=== PATIENT | female | born 1965 | race Caucasian/White ===

== ENCOUNTER → 2018-02-14 | Outpatient (CLI) | payer MEDICARE, MEDICAID ==
[~2018-02-14] MED LIST: CEFA2PLA9 IV; ENOX40SY4 SQ
== END | disposition home or self-care (01) ==
LOC: RAD 10:19
PROVIDERS: ATTEND Orthopaedic Surgery
DX: M79.661 Pain in right lower leg (principal); M79.662 Pain in left lower leg; R60.9 Edema, unspecified
CPT/HCPCS: 93970

== ENCOUNTER 2018-09-16 15:37 | Inpatient (IN) | payer MEDICAID, MEDICARE ==
[~2018-09-16] VITALS: Ht 167.6 cm; Wt 95.0 kg
--- NOTE | 2018-09-16 15:56 | NUR ---
PT BIBA FOR C/O COUGH AND FEVERS X 2 DAYS, SOB STARTING TODAY. REPORT RECEIVED FROM EMS. PT STATES SOB WORSE WHEN LYING FLAT. ALSO NOTES GREEN VAG DISCHARGE X 1 MONTH, STATES "I NEED TO BE SEEN FOR AN STD" PT ATTACHED TO ALL MONITORS, EKG TAKEN ON ARRIVAL BY EDT. PER EMS, SPO2 90% ON ROOM AIR NEON SIGN INSTALLER, PT ARRIVED WEARING OXYGEN AT 4L/MIN. PT A&O, RESPS EVEN AND UNLABORED. NEURO INTACT. AWAITING MD AND ORDERS.
[2018-09-16] MEDS ORDERED: SODIUM CHLORIDE FLUSH 10ML SYR IVF ONE ×2 (16:00→17:00)
[2018-09-16 16:15] LABS: BASOPHILS # (AUTO) 0.02 x10^3/uL (0-0.1); BASOPHILS % (AUTO) 0 % (0-1); EOSINOPHILS # (AUTO) 0.03 x10^3/uL (0-0.4); EOSINOPHILS % (AUTO) 0 % (1-7); LYMPHOCYTES # (AUTO) 1.07 x10^3/uL (1-3.4); LYMPHOCYTES % (AUTO) 17 % (22-44); MD NO; MEAN CORPUSCULAR HEMOGLOBIN 32.2 pg (27.0-34.8); MEAN CORPUSCULAR HGB CONC 34.5 g/dL (32.4-35.8); MEAN CORPUSCULAR VOLUME 93.4 fL (80-100); MEAN PLATELET VOLUME 7.8 fL (7.4-10.4); MONOCYTES # (AUTO) 0.55 x10^3/uL (0.2-0.8); MONOCYTES % (AUTO) 9 % (2-9); NEUTROPHILS # (AUTO) 4.84 x10^3/uL (1.8-6.8); NEUTROPHILS % (AUTO) 74 % (42-75); PLATELET COUNT 105 x10^3/uL (130-400)
[2018-09-16 16:23] LABS: INTERNATIONAL NORMALIZED RATIO 1.19 (0.93-1.1); PROTHROMBIN TIME 12.4 Seconds (9.6-11.5)
[2018-09-16 16:26] LABS: ALANINE AMINOTRANSFERASE 22 U/L (12-78); ALBUMIN 2.9 g/dL (3.4-5.0); ANION GAP 9 mmol/L (5-15); CALCIUM 7.5 mg/dL (8.5-10.1); CHLORIDE 111 mmol/L (98-107); CREATININE 0.75 mg/dL (0.55-1.02)
[2018-09-16 16:30] LABS: ALKALINE PHOSPHATASE 106 U/L (45-117); BILIRUBIN,TOTAL 2.5 mg/dL (0.2-1.0); TOTAL PROTEIN 6.8 g/dL (6.4-8.2); TROPONIN I < 0.015 ng/mL (0.000-0.045)
[2018-09-16] MEDS ORDERED: VANCOMYCIN PER PHARMACY IV ONE (16:30)
[2018-09-16] MEDS ORDERED: ALBUTEROL SULFATE 2.5 MG/3 ML ONE (16:37)
[2018-09-16] MEDS ORDERED: PIPERACILLIN/TAZO/PMX 3.375GM 50 ML ONE (16:59)
[2018-09-16] MEDS ORDERED: PIPERACILLIN/TAZO/PMX 3.375GM 50 ML IVPB ONE (17:00)
--- NOTE | 2018-09-16 17:21 | NUR ---
PT MEDICATED PER EMAR, TOLERATING WELL. PT IS A&O, RESPS EVEN AND UNLABORED, DOZING INTERMITTENTLY BUT AWAKENS SPONTANEOUSLY. SINUS TACH ON SENIOR ENVIRONMENTAL ENGINEER, NO ECTOPY NOTED.
--- NOTE | 2018-09-16 17:44 | NUR ---
REPORT GIVEN TO RECEIVING AUGIE SONG PT AWAITING TRANSPORT TO ROOM 403-2 Addendum: 09/16/18 at 1745 by BARBARA REPORT GIVEN TO RECEIVING AUGIE SONG PT AWAITING TRANSPORT TO ROOM 402-1
--- NOTE | 2018-09-16 17:47 | NUR ---
PT SLEEPING, RESPS EVEN AND UNLABORED. SINUS TACH RATE 110'S WITH NO ECTOPY ON WOODWORKING SHOP LABORER.
--- NOTE | 2018-09-16 17:47 | NUR ---
HOSPITALIST AT BEDSIDE.
[2018-09-16] MEDS ORDERED: VANCOMYCIN 1,400 MG in SODIUM CHLORIDE 0.9% 250 ML IV ONE (18:00)
[2018-09-16] MEDS ORDERED: SODIUM CHLORIDE 0.9% 1,000ML IVBOLUS ONE (18:00)
[2018-09-16] MEDS ORDERED: SODIUM CHLORIDE 0.9% 1,000 ML IV SCH (18:07)
[2018-09-16] MEDS ORDERED: VANCOMYCIN PER PHARMACY MC PRN (18:30)
[2018-09-16] MEDS ORDERED: MAGNESIUM SULFATE 3 GM in SODIUM CHLORIDE 0.9% 100 ML IV ONE (18:30)
[2018-09-16] MEDS ORDERED: DOCUSATE 100 MG CAPSULE PO PRN (18:30)
[2018-09-16] MEDS ORDERED: POLYETHYLENE GLYCOL 17 GM PACKET PO PRN (18:30)
[2018-09-16 18:52] VITALS: BP 149/97
[2018-09-16] MEDS: ALBUTEROL/IPRATROPIUM 2.5MG/0.5MG, 3 ML NPPB SCH ×2 (19:00→22:36)
[2018-09-16] MEDS ORDERED: PHARMACOKINETIC MONITORING MC PRN (19:00)
[2018-09-16] MEDS ORDERED: VANCOMYCIN 1,400 MG in SODIUM CHLORIDE 0.9% 250 ML IV SCH (19:00)
[2018-09-16] MEDS ORDERED: PHARMACOKINETIC CONSULTATION MC ONE (19:00)
[2018-09-16] MEDS: NS IV SCH (20:24)
[2018-09-16] MEDS: KCL IV SCH (20:24)
[2018-09-16 20:30] VITALS: BP 150/110
[2018-09-16 20:31] VITALS: BP 159/108
[2018-09-16] MEDS: CEFTRIAXONE PMX 2GM/50ML 50 ML IV SCH (20:31)
[2018-09-16 20:32] VITALS: BP 156/108
[2018-09-16] MEDS: AZITHROMYCIN 500 MG in SODIUM CHLORIDE 0.9% 250 ML IV SCH (21:04)
[2018-09-16 21:09] LABS: RAPID INFLUENZA A Negative (Negative); RAPID INFLUENZA B Negative (Negative)
[2018-09-16] MEDS ORDERED: KETOROLAC 30 MG/1 ML IVPush SCH (22:00)
[2018-09-16] MEDS ORDERED: ONDANSETRON ODT 4 MG PO PRN (22:00)
[2018-09-16] MEDS: GUAIFENESIN/COD200MG-20MG/10ML LIQUID PO PRN (22:14)
[2018-09-16] MEDS: NICOTINE 14MG/24 HR PATCH.TD24 TD SCH (23:02)
[2018-09-16] MEDS: HEPARIN 5,000 UNITS/ML, 1ML SQ SCH (23:02)
[2018-09-16 23:14] VITALS: BP 161/105
[2018-09-16] MEDS: hydrALAzine 20 MG/ML, 1ML IV PRN (23:25)
[2018-09-17 01:45] VITALS: BP 144/85
[2018-09-17] MEDS: ALBUTEROL/IPRATROPIUM 2.5MG/0.5MG, 3 ML NPPB SCH ×6 (02:13→23:00)
[2018-09-17 05:45] LABS: MEAN CORPUSCULAR HEMOGLOBIN 32.7 pg (27.0-34.8); MEAN CORPUSCULAR HGB CONC 34.8 g/dL (32.4-35.8); MEAN CORPUSCULAR VOLUME 93.9 fL (80-100); RED BLOOD COUNT 4.13 x10^6/uL (3.82-5.3)
[2018-09-17 05:49] LABS: ALBUMIN 2.8 g/dL (3.4-5.0); ANION GAP 7 mmol/L (5-15); CALCIUM 7.5 mg/dL (8.5-10.1); CHLORIDE 112 mmol/L (98-107)
[2018-09-17 06:02] LABS: ALANINE AMINOTRANSFERASE 19 U/L (12-78); ALKALINE PHOSPHATASE 113 U/L (45-117); BILIRUBIN,TOTAL 2.5 mg/dL (0.2-1.0); CREATININE 0.51 mg/dL (0.55-1.02); TOTAL PROTEIN 6.8 g/dL (6.4-8.2)
[2018-09-17 06:20] LABS: BASOPHILS # (AUTO) 0.02 x10^3/uL (0-0.1); BASOPHILS % (AUTO) 0 % (0-1); EOSINOPHILS # (AUTO) 0.01 x10^3/uL (0-0.4); EOSINOPHILS % (AUTO) 0 % (1-7); LYMPHOCYTES # (AUTO) 0.96 x10^3/uL (1-3.4); LYMPHOCYTES % (AUTO) 16 % (22-44); MD SCAN; MEAN PLATELET VOLUME 8.5 fL (7.4-10.4); MONOCYTES # (AUTO) 0.38 x10^3/uL (0.2-0.8); MONOCYTES % (AUTO) 6 % (2-9); NEUTROPHILS # (AUTO) 4.78 x10^3/uL (1.8-6.8); NEUTROPHILS % (AUTO) 78 % (42-75); PLATELET COUNT 93 x10^3/uL (130-400)
[2018-09-17 07:23] VITALS: BP 167/115
[2018-09-17] MEDS: HEPARIN 5,000 UNITS/ML, 1ML SQ SCH ×2 (08:19→16:52)
[2018-09-17] MEDS: KETOROLAC 30 MG/1 ML IVPush PRN ×2 (08:48→17:02)
[2018-09-17] MEDS: ACETAMINOPHEN 325 MG TABLET PO PRN (08:48)
[2018-09-17 09:25] VITALS: BP 161/103
[2018-09-17] MEDS: hydrALAzine 20 MG/ML, 1ML IV PRN (09:29)
[2018-09-17] MEDS ORDERED: POTASSIUM CHLORIDE 20 MEQ TAB.ER.PRT PO ONE (09:30)
[2018-09-17] MEDS: methylPREDNISolone SOD SUCC 40 MG/ML IV SCH ×2 (10:35→16:52)
[2018-09-17 12:18] VITALS: BP_SYST 129; BP_SYST 150; BP_DIAS 69; BP_DIAS 93
[2018-09-17] MEDS: KCL IV SCH ×2 (12:38→22:22)
[2018-09-17] MEDS: NS IV SCH ×2 (12:38→22:22)
[2018-09-17 16:55] VITALS: BP 145/97
[2018-09-17] MEDS: CEFTRIAXONE PMX 2GM/50ML 50 ML IV SCH (20:00)
[2018-09-17 20:04] VITALS: BP 138/88
[2018-09-17] MEDS: AZITHROMYCIN 500 MG in SODIUM CHLORIDE 0.9% 250 ML IV SCH (21:03)
[2018-09-17] MEDS: NICOTINE 14MG/24 HR PATCH.TD24 TD SCH (21:10)
[2018-09-18] MEDS: methylPREDNISolone SOD SUCC 40 MG/ML IV SCH ×3 (00:39→18:00)
[2018-09-18] MEDS: HEPARIN 5,000 UNITS/ML, 1ML SQ SCH ×3 (00:51→18:00)
[2018-09-18] MEDS: GUAIFENESIN/COD200MG-20MG/10ML LIQUID PO PRN ×3 (01:00→18:00)
[2018-09-18] MEDS: KETOROLAC 30 MG/1 ML IVPush PRN ×2 (01:01→19:36)
[2018-09-18 01:05] VITALS: BP 152/92
[2018-09-18] MEDS: ALBUTEROL/IPRATROPIUM 2.5MG/0.5MG, 3 ML NPPB SCH ×5 (03:00→19:26)
[2018-09-18 05:04] LABS: MEAN CORPUSCULAR HEMOGLOBIN 32.6 pg (27.0-34.8); MEAN CORPUSCULAR HGB CONC 34.3 g/dL (32.4-35.8); MEAN CORPUSCULAR VOLUME 94.8 fL (80-100); MEAN PLATELET VOLUME 8.9 fL (7.4-10.4); PLATELET COUNT 95 x10^3/uL (130-400); RED BLOOD COUNT 3.92 x10^6/uL (3.82-5.3); RED CELL DISTRIBUTION WIDTH 15.2 % (9.6-15.2)
[2018-09-18 05:19] LABS: ALANINE AMINOTRANSFERASE 18 U/L (12-78); ALBUMIN 2.5 g/dL (3.4-5.0); ANION GAP 9 mmol/L (5-15); CALCIUM 8.1 mg/dL (8.5-10.1); CHLORIDE 118 mmol/L (98-107); CREATININE 0.68 mg/dL (0.55-1.02)
[2018-09-18 05:22] LABS: ALKALINE PHOSPHATASE 101 U/L (45-117); BILIRUBIN,TOTAL 1.2 mg/dL (0.2-1.0); TOTAL PROTEIN 6.4 g/dL (6.4-8.2)
[2018-09-18 05:56] LABS: BASOPHILS % (AUTO) 0 % (0-1); EOSINOPHILS % (AUTO) 0 % (1-7); LYMPHOCYTES # (AUTO) 0.24 x10^3/uL (1-3.4); LYMPHOCYTES % (AUTO) 8 % (22-44); MD SCAN; MONOCYTES # (AUTO) 0.05 x10^3/uL (0.2-0.8); MONOCYTES % (AUTO) 2 % (2-9); NEUTROPHILS # (AUTO) 2.79 x10^3/uL (1.8-6.8); NEUTROPHILS % (AUTO) 91 % (42-75)
[2018-09-18] MEDS: KCL IV SCH (06:24)
[2018-09-18] MEDS: NS IV SCH (06:24)
[2018-09-18 07:46] VITALS: BP 161/101
[2018-09-18] MEDS: ACETAMINOPHEN 325 MG TABLET PO PRN (10:30)
[2018-09-18] MEDS: INSULIN LISPRO 100 UNITS/ML, PEN SQ-INSULIN SCH ×3 (11:00→20:18)
[2018-09-18 14:18] VITALS: BP 151/91
[2018-09-18 16:31] LABS: HEMOGLOBIN A1C 4.8 % (4.2-6.3)
[2018-09-18 18:21] LABS: MICROSCOPIC INDICATED
[2018-09-18 18:31] LABS: CULTURE INDICATED? YES
[2018-09-18 19:15] VITALS: BP 154/95
[2018-09-18] MEDS: CEFTRIAXONE PMX 2GM/50ML 50 ML IV SCH (20:18)
[2018-09-18] MEDS: NICOTINE 14MG/24 HR PATCH.TD24 TD SCH (21:00)
[2018-09-18] MEDS: AZITHROMYCIN 500 MG in SODIUM CHLORIDE 0.9% 250 ML IV SCH (21:52)
[2018-09-19 01:56] VITALS: BP 148/92
[2018-09-19] MEDS: HEPARIN 5,000 UNITS/ML, 1ML SQ SCH ×2 (02:00→11:32)
[2018-09-19] MEDS: methylPREDNISolone SOD SUCC 40 MG/ML IV SCH ×2 (02:20→11:32)
[2018-09-19] MEDS: KETOROLAC 30 MG/1 ML IVPush PRN (02:20)
[2018-09-19] MEDS: ALBUTEROL/IPRATROPIUM 2.5MG/0.5MG, 3 ML NPPB SCH ×3 (06:55→14:26)
[2018-09-19 07:15] VITALS: BP 146/96
[2018-09-19] MEDS: INSULIN LISPRO 100 UNITS/ML, PEN SQ-INSULIN SCH ×2 (07:59→11:33)
[2018-09-19] MEDS ORDERED: Guaifenesin/Cod200mg-20MG/10ML PO (12:42)
[2018-09-19] MEDS ORDERED: AZIT250T PO (12:42)
[2018-09-19] MEDS ORDERED: CEFD300C37 PO (12:45)
== END 2018-09-19 18:16 | disposition home or self-care (01) | DRG 871 ==
LOC: ED 16:48 → EDIP 17:06 → 4WST 18:20 → 3NW 19:56
PROVIDERS: ADMIT Hospitalist; ATTEND Hospitalist
DX: A41.9 Sepsis, unspecified organism (principal); J18.1 Lobar pneumonia, unspecified organism; J96.00 Acute respiratory failure, unspecified whether with hypoxia or hypercapnia; G82.50 Quadriplegia, unspecified; J84.89 Other specified interstitial pulmonary diseases; R65.20 Severe sepsis without septic shock; D69.6 Thrombocytopenia, unspecified; E83.42 Hypomagnesemia; E83.51 Hypocalcemia; F17.210 Nicotine dependence, cigarettes, uncomplicated; I44.7 Left bundle-branch block, unspecified; K74.60 Unspecified cirrhosis of liver; R59.9 Enlarged lymph nodes, unspecified; S39.012A Strain of muscle, fascia and tendon of lower back, initial encounter; X58.XXXA Exposure to other specified factors, initial encounter; Z80.9 Family history of malignant neoplasm, unspecified; Z86.73 Personal history of transient ischemic attack (TIA), and cerebral infarction without residual deficits; Z88.6 Allergy status to analgesic agent; Z88.8 Allergy status to other drugs, medicaments and biological substances; Y93.89 Activity, other specified; Y92.89 Other specified places as the place of occurrence of the external cause; Y99.8 Other external cause status
CPT/HCPCS: 36415; 71045; 71250; 80053; 81001; 82962; 83036; 83605; 83735; 83880; 84145; 84443; 84484; 85025; 85610; 87040; 87081; 87086; 87400; 87491; 87591; 93005; 94640; 96365; G0378; J0456; J0696; J1644; J1885; J2543; J3370; J3475; J3480; J7620; J0360; J1815; J2920; J7030; J7050

== ENCOUNTER 2019-04-07 13:19 | Emergency (ER) | payer MEDICARE ==
[~2019-04-07] VITALS: Ht 170.2 cm; Wt 71.0 kg
[~2019-04-07 13:19] MED LIST changes: +AZIT250T PO; +CEFD300C37 PO; +Guaifenesin/Cod200mg-20MG/10ML PO
[2019-04-07 13:20] VITALS: BP 171/113
--- NOTE | 2019-04-07 13:38 | NUR ---
C/O PORK STUCK IN THROAT AT 1100 YESTERDAY. PT ATTEMPTED MULTIPLE TIMES TO GET IT DOWN AND UP, W/O SUCCESS. PT UNABLE TO SWALLOW ANYTHING, INCLUDING OWN SALIVA. HX ESOPHOGEAL VARICIES. PT HX STROKE WITH RIGHT SIDE WEAKNESS, PT TRANSFERRED TO BED FROM WITH SBA. CONNECTED TO MONITORING. CALL LIGHT IN REACH. FALL PRECAUTIONS IN PLACE.
[2019-04-07] MEDS ORDERED: SODIUM CHLORIDE FLUSH 10ML SYR IVF ONE (14:00)
[2019-04-07] MEDS ORDERED: FAMOTIDINE 20 MG/2 ML IV ONE (14:00)
[2019-04-07] MEDS ORDERED: SODIUM CHLORIDE 0.9% 1,000ML IVBOLUS ONE (14:00)
--- NOTE | 2019-04-07 14:13 | NUR ---
patient refused EKG
[2019-04-07] MEDS ORDERED: FAMOTIDINE 20 MG/2 ML ONE (14:51)
[2019-04-07] MEDS ORDERED: PROPOFOL 10 MG/ML, 20ML ONE ×2 (14:51→15:01)
--- NOTE | 2019-04-07 15:25 | NUR ---
PROCEDURE TIME OUT 1455, PT GIVEN 300MG OF PROPOFOL DURING PROCEDURE. TOLERATED WELL WITH NO COMPLICATIONS. PT ACTED. FB DISLODGED AND PART OF IT REMOVED. PER GI DOC SENCOND OBSTRUCTION WAS PUSHED INTO STOMACH. PT AWAKE AND ALERT ABOUT 10 MINUTES S/P PROCEDURE. PT PROCEDURE END TIME 1520.
--- NOTE | 2019-04-07 15:28 | NUR ---
pt informing this rn that she cannot wait to go eat. RN educated pt on bland diet and only eating soft foods for a day or two to help prevent reocclusion. pt reports she cannot wait to stop at the gas station for some snacks and a slurpee as she has not eaten all day. Pt reminded that bland diet and jello may be a better option today. Pt remains on monitoring equipment. Pt not receptive to rn recommendations on food and chewing food more throughly. vss
[2019-04-07] MEDS ORDERED: PROPOFOL 10 MG/ML, 20ML IVPush ONE (15:30)
--- NOTE | 2019-04-07 16:42 | NUR ---
Patient/Caregiver given discharge instructions and they have confirmed that they understand the instructions. Patient ambulatory with steady gait. please see procedural sedation packet for detialed info.
== END 2019-04-07 16:44 | disposition home or self-care (01) ==
LOC: ED 16:33
DX: T18.128A Food in esophagus causing other injury, initial encounter (principal); Z86.73 Personal history of transient ischemic attack (TIA), and cerebral infarction without residual deficits
CPT/HCPCS: 43247; 74220; 96374; 99152; 99153; 99285; J3490; J7030

== ENCOUNTER 2020-08-27 06:08 | Emergency (ER) | payer MEDICARE, MEDICAID ==
[~2020-08-27] VITALS: Ht 167.6 cm; Wt 82.7 kg
[~2020-08-27 06:08] MED LIST changes: +ACET325T26 PO; +AMOX-291 PO; +ATOR40TA78 PO; +CARV3.1212 PO; +CARV6.2512 PO; +CLOP75TA52 PO; +GABA300C10 PO; +HYDR-3342 PO; +LISI-167 PO; +LISI5TAB7 PO; +MAGN400T50 PO; +SPIR25TA PO; +THIA100T67 PO
[2020-08-27] MEDS ORDERED: SODIUM CHLORIDE FLUSH 10ML SYR IVF ONE (06:30)
--- NOTE | 2020-08-27 07:05 | NUR ---
Recvd report from Greg GHOSH.
[2020-08-27] MEDS ORDERED: ONDANSETRON 2MG/ML, 2ML ONE (07:56)
[2020-08-27] MEDS ORDERED: ONDANSETRON 2MG/ML, 2ML IVPush ONE (08:00)
--- NOTE | 2020-08-27 08:03 | NUR ---
PT IS RESTING IN BED. SHE COMPLAINED OF NAUSEA, MEDICATED PER EMAR. GI WILL BE HERE AT 11:30 FOR PROCEDURE. CALL LIGHT WITHIN REACH.
--- NOTE | 2020-08-27 08:14 | NUR ---
pt declined blood draw, aware.
--- NOTE | 2020-08-27 08:27 | NUR ---
Placed pt on 2L O2 via NC
--- NOTE | 2020-08-27 08:57 | NUR ---
PT STATES THE NAUSEA IS BETTER BUT SHE IS COMPLAINING OF PAIN IN HER THROAT FROM WHERE THE MUSCLES ARE TRYING TO MOVE THE FB. ADVISED WE ARE WAITING ON GI AT 11:30 AND WE CANNOT PET FEEDER HE PAIN MEDS AT THIS TIME. ALL MONITORS IN PLACE AND CALL LIGHT WITHIN REACH.
--- NOTE | 2020-08-27 09:22 | NUR ---
report to Moses GHOSH in pre-op. They will come get the pt at around 11:00. John swab collected and walked stan.
[2020-08-27] MEDS ORDERED: LABETALOL 5MG/ML, 20ML ONE (09:48)
--- NOTE | 2020-08-27 10:03 | NUR ---
MEDICATED PER EMAR, PROVIDED WET WASHCLOTH FOR PATIENTS FACE. SHE IS STILL PRETTY UNCOMFORTABLE. ADVISED OR WOULD BE DOWN TO GET HER WITHIN THE HOUR. CALL LIGHT WITHIN REACH.
[2020-08-27] MEDS ORDERED: LABETALOL 5MG/ML, 20ML IVPush ONE (10:30)
--- NOTE | 2020-08-27 11:37 | NUR ---
PT RESTING IN BED AWAITING TRANSFER TO ENDOSCOPY FOR PROCEDURE. BELONGINGS GATHERED INCLUDING JEWELRY LABELED IN SMALL CLEAR CONTAINER.
[2020-08-27] MEDS ORDERED: LABETALOL 5MG/ML, 20ML IVPush STA (11:38)
--- NOTE | 2020-08-27 12:10 | NUR ---
call to Endoscopy to find out an ETA for the patients procedure. There is a delay with another pt. They estimate it will be another hour and a half to 2 hours.
[2020-08-27 12:18] LABS: BASOPHILS % (AUTO) 1 % (0-1); EOSINOPHILS % (AUTO) 2 % (1-7); LYMPHOCYTES % (AUTO) 25 % (22-44); MEAN CORPUSCULAR HEMOGLOBIN 34.4 pg (27.0-34.8); MEAN CORPUSCULAR HGB CONC 34.8 g/dL (32.4-35.8); MEAN PLATELET VOLUME 9.4 fL (7.4-10.4); MONOCYTES % (AUTO) 11 % (2-9); NEUTROPHILS % (AUTO) 61 % (42-75); PLATELET COUNT 121 x10^3/uL (130-400); RED BLOOD COUNT 4.55 x10^6/uL (3.82-5.3); RED CELL DISTRIBUTION WIDTH 14.1 % (9.6-15.2)
[2020-08-27 12:21] LABS: MD NO
[2020-08-27 12:27] LABS: ALANINE AMINOTRANSFERASE 24 U/L (12-78); ALBUMIN 2.9 g/dL (3.4-5.0); ANION GAP 10 mmol/L (5-15); CALCIUM 8.3 mg/dL (8.5-10.1); CHLORIDE 112 mmol/L (98-107); CREATININE 0.72 mg/dL (0.55-1.02)
[2020-08-27 12:28] LABS: INTERNATIONAL NORMALIZED RATIO 1.32 (0.93-1.1)
[2020-08-27 12:30] LABS: ALKALINE PHOSPHATASE 122 U/L (45-117); BILIRUBIN,TOTAL 5.8 mg/dL (0.2-1.0); TOTAL PROTEIN 7.1 g/dL (6.4-8.2)
--- NOTE | 2020-08-27 12:54 | NUR ---
PT RESTING ON GURNEY, RESP EVEN AND UNLABORED, CALL LIGHT WITHIN REACH. AWAITING PRE OP FOR GI PROCEDURE.
--- NOTE | 2020-08-27 13:28 | NUR ---
ENDOSCOPY TEAM AT TO PREFORM SCOPE.
[2020-08-27] MEDS ORDERED: FENTANYL PF 100 MCG/2ML ONE ×2 (13:36→13:46)
[2020-08-27] MEDS ORDERED: MIDAZOLAM 1 MG/ML, 2ML ONE ×2 (13:36→13:46)
--- NOTE | 2020-08-27 14:04 | NUR ---
PT RECOVERING FROM EDOSCOPY, SLEEPING RESP EVEN AND UNLABORED, CIVIL ENGINEERING INTERN ON, CONTIONUS SP02 AND CYCLE VS. BED RAILS X 2
--- NOTE | 2020-08-27 14:57 | NUR ---
PT IS STILL PRETTY SEDATED. SHE WAS ABLE TO WAKE UP ENOUGH TO TAKE A COUPLE OF SIPS OF WATER. ALL MONITORS IN PLACE. ONCE SHE IS BACK TO BASELINE WE WILL ARRANGE FOR TRANSPORT HOME.
--- NOTE | 2020-08-27 15:04 | NUR ---
PT IS STILL REQUIRING 2L O2 TO MAINTAIN SATURATION ABOVE 90%. ALL MONITORS IN PLACE.
--- NOTE | 2020-08-27 15:34 | NUR ---
SAT PT UP, OFFERED WATER, PT DESAT TO 88% WITH NO O2, PLACED BACK ON 1L VIA NC AND SHE IS AT 91%
--- NOTE | 2020-08-27 16:15 | NUR ---
CALLED [facility], INFORMATION SYSTEMS SPECIALIST TIME AT 1999. ORDERED MEAL
--- NOTE | 2020-08-27 16:30 | NUR ---
PT IS AWAKE AND ALERT. SHE IS ABLE TO SIT ON THE SIDE OF THE BED AND DRINK FLUIDS WITHOUT COMPLICATION. CALL TO HER FRIEND SID, HE WILL COME PICK HER UP. WILL CANCEL [facility].
[2020-08-27 16:48] VITALS: BP 138/82
== END 2020-08-27 16:51 | disposition home or self-care (01) ==
LOC: ED 06:49
DX: T18.128A Food in esophagus causing other injury, initial encounter (principal); Z20.822 Contact with and (suspected) exposure to COVID-19; R11.2 Nausea with vomiting, unspecified; I11.0 Hypertensive heart disease with heart failure; I50.9 Heart failure, unspecified; F17.200 Nicotine dependence, unspecified, uncomplicated; Z86.73 Personal history of transient ischemic attack (TIA), and cerebral infarction without residual deficits; X58.XXXA Exposure to other specified factors, initial encounter; Y93.89 Activity, other specified; Y92.89 Other specified places as the place of occurrence of the external cause; Y99.8 Other external cause status
CPT/HCPCS: 36415; 43247; 80053; 85025; 85610; 85730; 87635; 93005; 96374; 96375; 96376; 99152; 99153; 99285; J2405

== ENCOUNTER 2021-02-02 09:18 | Inpatient (IN) | payer MEDICARE, MEDICAID ==
[~2021-02-02] VITALS: Ht 167.6 cm; Wt 96.8 kg
--- NOTE | 2021-02-02 12:03 | NUR ---
Pt assisted into bed. BLE 3+ pitting edema with drainage. Pt reports being non-compliant with medication.
[2021-02-02] MEDS ORDERED: SODIUM CHLORIDE FLUSH 10ML SYR IVF ONE (12:30)
[2021-02-02 13:12] LABS: BASOPHILS % (AUTO) 1 % (0-1); EOSINOPHILS % (AUTO) 2 % (1-7); LYMPHOCYTES % (AUTO) 26 % (22-44); MEAN CORPUSCULAR HEMOGLOBIN 35.7 pg (27.0-34.8); MEAN CORPUSCULAR HGB CONC 33.4 g/dL (32.4-35.8); MEAN PLATELET VOLUME 9.8 fL (7.4-10.4); MONOCYTES % (AUTO) 16 % (2-9); NEUTROPHILS % (AUTO) 55 % (42-75); PLATELET COUNT 107 x10^3/uL (130-400); RED BLOOD COUNT 4.07 x10^6/uL (3.82-5.3); RED CELL DISTRIBUTION WIDTH 18.1 % (9.6-15.2)
[2021-02-02 13:26] LABS: ALANINE AMINOTRANSFERASE 24 U/L (12-78); ALBUMIN 1.9 g/dL (3.4-5.0); ANION GAP 9 mmol/L (5-15); CALCIUM 7.8 mg/dL (8.5-10.1); CHLORIDE 104 mmol/L (98-107); CREATININE 0.65 mg/dL (0.55-1.02)
[2021-02-02 13:30] LABS: ALKALINE PHOSPHATASE 152 U/L (45-117); BILIRUBIN,TOTAL 7.1 mg/dL (0.2-1.0); TOTAL PROTEIN 6.5 g/dL (6.4-8.2)
[2021-02-02] MEDS ORDERED: VANCOMYCIN 1,000 MG in SODIUM CHLORIDE 0.9% 100 ML IV ONE (13:30)
[2021-02-02] MEDS ORDERED: FUROSEMIDE 40 MG/4 ML IV ONE (13:30)
[2021-02-02] MEDS ORDERED: VANCOMYCIN PER PHARMACY MC ONE (13:30)
[2021-02-02] MEDS ORDERED: POTASSIUM CHLORIDE 20 MEQ PACKET PO ONE (14:00)
[2021-02-02] MEDS ORDERED: POTASSIUM CHLORIDE 40 MEQ in SODIUM CHLORIDE 0.9% 500 ML IV ONE (14:00)
[2021-02-02] MEDS ORDERED: POTASSIUM CHLORIDE 20 MEQ PACKET ONE (14:06)
[2021-02-02] MEDS ORDERED: FUROSEMIDE 40 MG/4 ML ONE (14:06)
[2021-02-02] MEDS ORDERED: NS + 40MEQ KCL 0 ML IV ONE (14:07)
[2021-02-02 14:15] LABS: MICROSCOPIC INDICATED
[2021-02-02] MEDS ORDERED: PIPERACILLIN/TAZO 3.375 GM in DEXTROSE 5% 50 ML IV SCH (16:00)
[2021-02-02] MEDS ORDERED: DOCUSATE 100 MG CAPSULE PO PRN (16:00)
[2021-02-02 16:18] LABS: TROPONIN I < 0.015 ng/mL (0.000-0.045)
[2021-02-02 18:57] LABS: INTERNATIONAL NORMALIZED RATIO 1.33 (0.93-1.1)
--- NOTE | 2021-02-02 19:03 | NUR ---
Pt provided with dinner tray, tolerating well.
[2021-02-02] MEDS ORDERED: MAGNESIUM SULFATE PMX 2GM/50ML 50 ML IV ONE (19:30)
[2021-02-02] MEDS ORDERED: LISINOPRIL 10 MG TABLET ONE (19:33)
[2021-02-02] MEDS ORDERED: ENOXAPARIN 40 MG/0.4 ML ONE (19:33)
[2021-02-02] MEDS ORDERED: MAGNESIUM SULFATE PMX 2GM/50ML 50 ML ONE (19:34)
[2021-02-02] MEDS ORDERED: FUROSEMIDE 20 MG/2 ML ONE (19:34)
[2021-02-02] MEDS: FUROSEMIDE 20 MG/2 ML IV SCH (19:51)
[2021-02-02] MEDS: ENOXAPARIN 40 MG/0.4 ML SQ SCH (19:51)
[2021-02-02] MEDS: LISINOPRIL 10 MG TABLET PO SCH (19:52)
--- NOTE | 2021-02-02 19:53 | NUR ---
Pt repositioned in bed, provided with extra blankets. Urine container changed. Pure wick in place. Pt on monitor, denies further needs.
--- NOTE | 2021-02-02 21:01 | NUR ---
Report given to AUGIE Corbett no further questions at this time.
[2021-02-02 21:50] VITALS: BP 129/76
[2021-02-02] MEDS: POTASSIUM CHLORIDE 20 MEQ TAB.ER.PRT PO SCH (22:25)
[2021-02-02] MEDS: FAMOTIDINE 20 MG TABLET PO SCH (22:25)
[2021-02-02] MEDS: ACETAMINOPHEN 325 MG TABLET PO PRN (22:25)
[2021-02-02 22:53] LABS: TROPONIN I < 0.015 ng/mL (0.000-0.045)
[2021-02-02 23:30] LABS: MICROSCOPIC NOT IND
[2021-02-02 23:31] LABS: AMPHETAMINE SCREEN, URINE Negative (Negative); BARBITURATE SCREEN, URINE Negative (Negative); BENZODIAZEPINE SCREEN, URINE Negative (Negative); CANNABINOID SCREEN, URINE Negative (Negative); COCAINE SCREEN, URINE Negative (Negative); METHADONE SCREEN, URINE Negative (Negative); OPIATE SCREEN, URINE Negative (Negative)
[2021-02-03 00:58] VITALS: BP 124/86
[2021-02-03] MEDS: PIPERACILLIN/TAZO 3.375 GM in DEXTROSE 5% 50 ML IV SCH ×3 (01:56→17:34)
[2021-02-03 05:26] VITALS: BP 107/74
[2021-02-03] MEDS: CARVEDILOL 6.25 MG TABLET PO SCH ×2 (05:29→17:03)
[2021-02-03] MEDS ORDERED: MAGNESIUM SULFATE PMX 2GM/50ML 50 ML IV ONE (07:00)
[2021-02-03 08:09] VITALS: BP 114/79
[2021-02-03] MEDS: FUROSEMIDE 20 MG/2 ML IV SCH ×2 (08:21→17:03)
[2021-02-03] MEDS: POTASSIUM CHLORIDE 20 MEQ TAB.ER.PRT PO SCH ×2 (08:27→21:01)
[2021-02-03] MEDS: FAMOTIDINE 20 MG TABLET PO SCH ×2 (08:27→21:02)
[2021-02-03] MEDS: THIAMINE 100MG TABLET PO SCH (08:27)
[2021-02-03] MEDS: LISINOPRIL 10 MG TABLET PO SCH (08:28)
[2021-02-03 09:00] LABS: BASOPHILS % (AUTO) 1 % (0-1); EOSINOPHILS % (AUTO) 1 % (1-7); LYMPHOCYTES % (AUTO) 14 % (22-44); MEAN CORPUSCULAR HEMOGLOBIN 36.6 pg (27.0-34.8); MEAN CORPUSCULAR HGB CONC 34.4 g/dL (32.4-35.8); MEAN PLATELET VOLUME 10.3 fL (7.4-10.4); MONOCYTES % (AUTO) 16 % (2-9); NEUTROPHILS % (AUTO) 68 % (42-75); PLATELET COUNT 98 x10^3/uL (130-400); RED BLOOD COUNT 3.82 x10^6/uL (3.82-5.3); RED CELL DISTRIBUTION WIDTH 18.2 % (9.6-15.2)
[2021-02-03] MEDS ORDERED: LISINOPRIL 10 MG TABLET PO SCH (09:00)
[2021-02-03 09:09] LABS: ALBUMIN 1.6 g/dL (3.4-5.0); CALCIUM 7.5 mg/dL (8.5-10.1)
[2021-02-03 09:13] LABS: ALANINE AMINOTRANSFERASE 17 U/L (12-78); ALKALINE PHOSPHATASE 128 U/L (45-117); BILIRUBIN,TOTAL 7.5 mg/dL (0.2-1.0); CREATININE 0.73 mg/dL (0.55-1.02); TOTAL PROTEIN 5.4 g/dL (6.4-8.2)
[2021-02-03 09:15] LABS: ANION GAP 5 mmol/L (5-15); CHLORIDE 106 mmol/L (98-107)
[2021-02-03 09:43] LABS: <PLATELET ESTIMATE> DECREASED; ANISOCYTOSIS 1+; OVALOCYTES 1+
[2021-02-03 09:44] LABS: <PLT MORPHOLOGY> NORMAL PLT MORPH
[2021-02-03] MEDS: ACETAMINOPHEN 325 MG TABLET PO PRN ×2 (10:29→21:01)
[2021-02-03] MEDS: NICOTINE 14MG/24 HR PATCH.TD24 TD SCH (14:46)
[2021-02-03 15:22] VITALS: BP 99/66
[2021-02-03] MEDS: ENOXAPARIN 40 MG/0.4 ML SQ SCH (17:03)
[2021-02-03 20:06] VITALS: BP 118/68
[2021-02-04] MEDS: PIPERACILLIN/TAZO 3.375 GM in DEXTROSE 5% 50 ML IV SCH ×4 (00:19→18:17)
[2021-02-04 00:24] VITALS: BP 93/61
[2021-02-04] MEDS: ACETAMINOPHEN 325 MG TABLET PO PRN (03:09)
[2021-02-04 05:46] VITALS: BP 114/76
[2021-02-04] MEDS: CARVEDILOL 6.25 MG TABLET PO SCH ×2 (05:49→18:18)
[2021-02-04 06:26] LABS: BASOPHILS % (AUTO) 1 % (0-1); EOSINOPHILS % (AUTO) 1 % (1-7); LYMPHOCYTES % (AUTO) 17 % (22-44); MEAN CORPUSCULAR HEMOGLOBIN 36.2 pg (27.0-34.8); MEAN CORPUSCULAR HGB CONC 33.7 g/dL (32.4-35.8); MONOCYTES % (AUTO) 16 % (2-9); NEUTROPHILS % (AUTO) 65 % (42-75); PLATELET COUNT 108 x10^3/uL (130-400); RED BLOOD COUNT 3.78 x10^6/uL (3.82-5.3); RED CELL DISTRIBUTION WIDTH 18.3 % (9.6-15.2)
[2021-02-04 06:40] LABS: ANION GAP 6 mmol/L (5-15); CALCIUM 7.7 mg/dL (8.5-10.1); CHLORIDE 105 mmol/L (98-107)
[2021-02-04 06:44] LABS: CREATININE 0.84 mg/dL (0.55-1.02)
[2021-02-04 07:18] VITALS: BP 100/62
[2021-02-04] MEDS: FAMOTIDINE 20 MG TABLET PO SCH ×2 (08:36→21:13)
[2021-02-04] MEDS: POTASSIUM CHLORIDE 20 MEQ TAB.ER.PRT PO SCH ×2 (08:36→21:13)
[2021-02-04] MEDS: FUROSEMIDE 20 MG/2 ML IV SCH (08:37)
[2021-02-04] MEDS: LISINOPRIL 10 MG TABLET PO SCH (08:37)
[2021-02-04] MEDS: THIAMINE 100MG TABLET PO SCH (08:37)
[2021-02-04] MEDS ORDERED: MAGNESIUM SULFATE PMX 2GM/50ML 50 ML IV ONE (14:30)
[2021-02-04 14:42] VITALS: BP 93/65
[2021-02-04] MEDS: NICOTINE 14MG/24 HR PATCH.TD24 TD SCH (15:08)
[2021-02-04] MEDS ORDERED: OMNIPAQUE 350 MG/ML, 150 ML BOTTLE ONE (17:11)
[2021-02-04] MEDS: FUROSEMIDE 40 MG/4 ML IV SCH (18:17)
[2021-02-04] MEDS: ENOXAPARIN 40 MG/0.4 ML SQ SCH (18:17)
[2021-02-04 20:07] VITALS: BP 117/78
[2021-02-05 00:16] VITALS: BP 119/76
[2021-02-05] MEDS: PIPERACILLIN/TAZO 3.375 GM in DEXTROSE 5% 50 ML IV SCH ×5 (00:36→23:54)
[2021-02-05 06:06] VITALS: BP 124/90
[2021-02-05] MEDS: CARVEDILOL 6.25 MG TABLET PO SCH ×2 (06:11→17:10)
[2021-02-05 06:17] LABS: ANION GAP 7 mmol/L (5-15); CALCIUM 7.3 mg/dL (8.5-10.1); CHLORIDE 105 mmol/L (98-107); CREATININE 0.73 mg/dL (0.55-1.02)
[2021-02-05] MEDS: FUROSEMIDE 40 MG/4 ML IV SCH ×2 (07:45→17:09)
[2021-02-05] MEDS: POTASSIUM CHLORIDE 20 MEQ TAB.ER.PRT PO SCH ×2 (07:46→21:14)
[2021-02-05] MEDS: FAMOTIDINE 20 MG TABLET PO SCH ×2 (07:46→21:14)
[2021-02-05 07:47] VITALS: BP 112/82
[2021-02-05] MEDS: LISINOPRIL 10 MG TABLET PO SCH (07:47)
[2021-02-05] MEDS: THIAMINE 100MG TABLET PO SCH (07:47)
[2021-02-05] MEDS: NICOTINE 14MG/24 HR PATCH.TD24 TD SCH (14:10)
[2021-02-05 14:12] VITALS: BP 112/88
[2021-02-05 16:53] LABS: CLOSTRIDIUM DIFFICILE ANTIGEN POSITIVE
[2021-02-05 16:54] LABS: CLOSTRIDIUM DIFFICILE TOXIN NEGATIVE (Negative)
[2021-02-05 17:08] VITALS: BP 132/90
[2021-02-05] MEDS: ENOXAPARIN 40 MG/0.4 ML SQ SCH (17:09)
[2021-02-05 20:04] VITALS: BP 122/87
[2021-02-06] VITALS: BP 117/81
[2021-02-06 05:27] VITALS: BP 121/80
[2021-02-06] MEDS: PIPERACILLIN/TAZO 3.375 GM in DEXTROSE 5% 50 ML IV SCH ×4 (05:30→23:57)
[2021-02-06] MEDS: CARVEDILOL 6.25 MG TABLET PO SCH ×2 (05:30→16:39)
[2021-02-06 05:53] LABS: BASOPHILS % (AUTO) 1 % (0-1); EOSINOPHILS % (AUTO) 2 % (1-7); LYMPHOCYTES % (AUTO) 23 % (22-44); MEAN CORPUSCULAR HGB CONC 34.3 g/dL (32.4-35.8); MEAN PLATELET VOLUME 10.2 fL (7.4-10.4); MONOCYTES % (AUTO) 20 % (2-9); NEUTROPHILS % (AUTO) 54 % (42-75); PLATELET COUNT 173 x10^3/uL (130-400); RED BLOOD COUNT 3.71 x10^6/uL (3.82-5.3); RED CELL DISTRIBUTION WIDTH 18.5 % (9.6-15.2)
[2021-02-06 06:24] LABS: CHLORIDE 100 mmol/L (98-107)
[2021-02-06 06:28] LABS: ANION GAP 6 mmol/L (5-15); CALCIUM 8.2 mg/dL (8.5-10.1); CREATININE 0.76 mg/dL (0.55-1.02)
[2021-02-06 07:14] VITALS: BP 118/84
[2021-02-06] MEDS: SPIRONOLACTONE 25 MG TABLET PO SCH (07:49)
[2021-02-06] MEDS: THIAMINE 100MG TABLET PO SCH (07:49)
[2021-02-06] MEDS: POTASSIUM CHLORIDE 20 MEQ TAB.ER.PRT PO SCH ×2 (07:49→20:24)
[2021-02-06] MEDS: FAMOTIDINE 20 MG TABLET PO SCH ×2 (07:49→20:24)
[2021-02-06] MEDS: FUROSEMIDE 40 MG/4 ML IV SCH ×2 (07:49→16:39)
[2021-02-06] MEDS: LISINOPRIL 10 MG TABLET PO SCH (07:49)
[2021-02-06] MEDS: MAGNESIUM OXIDE 400 MG TABLET PO SCH ×2 (07:49→20:24)
[2021-02-06] MEDS ORDERED: MAGNESIUM SULFATE PMX 2GM/50ML 50 ML IV ONE ×2 (09:00→18:00)
[2021-02-06 13:38] VITALS: BP 122/79
[2021-02-06] MEDS: NICOTINE 14MG/24 HR PATCH.TD24 TD SCH (14:55)
[2021-02-06 16:37] VITALS: BP 112/77
[2021-02-06] MEDS: ENOXAPARIN 40 MG/0.4 ML SQ SCH (16:39)
[2021-02-06] MEDS: VANCOMYCIN 50 MG/ML ORAL SUSP PO SCH ×2 (18:15→23:57)
[2021-02-06 20:23] VITALS: BP 119/79
[2021-02-07 00:02] VITALS: BP 120/83
[2021-02-07 05:35] LABS: BASOPHILS % (AUTO) 1 % (0-1); EOSINOPHILS % (AUTO) 2 % (1-7); LYMPHOCYTES % (AUTO) 21 % (22-44); MEAN CORPUSCULAR HEMOGLOBIN 36.7 pg (27.0-34.8); MEAN PLATELET VOLUME 9.6 fL (7.4-10.4); MONOCYTES % (AUTO) 18 % (2-9); NEUTROPHILS % (AUTO) 58 % (42-75); PLATELET COUNT 199 x10^3/uL (130-400); RED BLOOD COUNT 3.77 x10^6/uL (3.82-5.3); RED CELL DISTRIBUTION WIDTH 18.3 % (9.6-15.2)
[2021-02-07 05:37] LABS: ALBUMIN 1.5 g/dL (3.4-5.0); ANION GAP 4 mmol/L (5-15); CALCIUM 8.5 mg/dL (8.5-10.1); CHLORIDE 99 mmol/L (98-107)
[2021-02-07 05:41] LABS: ALANINE AMINOTRANSFERASE 14 U/L (12-78); ALKALINE PHOSPHATASE 119 U/L (45-117); BILIRUBIN,TOTAL 4.1 mg/dL (0.2-1.0); CREATININE 0.76 mg/dL (0.55-1.02)
[2021-02-07 06:06] VITALS: BP 110/74
[2021-02-07] MEDS: PIPERACILLIN/TAZO 3.375 GM in DEXTROSE 5% 50 ML IV SCH ×3 (06:08→17:24)
[2021-02-07] MEDS: VANCOMYCIN 50 MG/ML ORAL SUSP PO SCH ×3 (06:09→17:23)
[2021-02-07] MEDS: CARVEDILOL 6.25 MG TABLET PO SCH ×2 (06:09→17:24)
[2021-02-07] MEDS: POTASSIUM CHLORIDE 20 MEQ TAB.ER.PRT PO SCH ×2 (07:41→20:43)
[2021-02-07 07:54] VITALS: BP 105/74
[2021-02-07] MEDS: MAGNESIUM OXIDE 400 MG TABLET PO SCH ×2 (07:56→20:48)
[2021-02-07] MEDS: FAMOTIDINE 20 MG TABLET PO SCH ×2 (07:56→20:48)
[2021-02-07] MEDS: SPIRONOLACTONE 25 MG TABLET PO SCH (07:56)
[2021-02-07] MEDS: THIAMINE 100MG TABLET PO SCH (07:56)
[2021-02-07] MEDS: FUROSEMIDE 40 MG/4 ML IV SCH ×2 (07:56→17:23)
[2021-02-07] MEDS: LISINOPRIL 10 MG TABLET PO SCH (07:56)
[2021-02-07 12:31] VITALS: BP 105/72
[2021-02-07] MEDS: NICOTINE 14MG/24 HR PATCH.TD24 TD SCH (15:03)
[2021-02-07] MEDS: ENOXAPARIN 40 MG/0.4 ML SQ SCH (17:23)
[2021-02-07 17:24] VITALS: BP 101/68
[2021-02-07 18:36] VITALS: BP 107/75
[2021-02-08] MEDS: VANCOMYCIN 50 MG/ML ORAL SUSP PO SCH ×4 (00:22→16:50)
[2021-02-08] MEDS: PIPERACILLIN/TAZO 3.375 GM in DEXTROSE 5% 50 ML IV SCH ×3 (00:22→11:44)
[2021-02-08 00:39] VITALS: BP 106/70
[2021-02-08 05:50] VITALS: BP 123/79
[2021-02-08] MEDS: CARVEDILOL 6.25 MG TABLET PO SCH ×2 (05:51→16:50)
[2021-02-08 08:12] VITALS: BP 119/82
[2021-02-08] MEDS: MAGNESIUM OXIDE 400 MG TABLET PO SCH (08:20)
[2021-02-08] MEDS: FUROSEMIDE 40 MG/4 ML IV SCH ×2 (08:20→16:52)
[2021-02-08] MEDS: SPIRONOLACTONE 25 MG TABLET PO SCH (08:20)
[2021-02-08] MEDS: FAMOTIDINE 20 MG TABLET PO SCH (08:21)
[2021-02-08] MEDS: POTASSIUM CHLORIDE 20 MEQ TAB.ER.PRT PO SCH (08:21)
[2021-02-08] MEDS: LISINOPRIL 10 MG TABLET PO SCH (08:21)
[2021-02-08] MEDS: THIAMINE 100MG TABLET PO SCH (08:21)
[2021-02-08] MEDS: NICOTINE 14MG/24 HR PATCH.TD24 TD SCH (13:42)
[2021-02-08 13:45] VITALS: BP 115/79
[2021-02-08] MEDS ORDERED: DOXY100C2 PO ×2 (15:43)
[2021-02-08] MEDS ORDERED: THIA100T67 PO (15:43)
[2021-02-08] MEDS ORDERED: LISI-167 PO (15:43)
[2021-02-08] MEDS ORDERED: AMOX1TAB64 PO (15:43)
[2021-02-08] MEDS ORDERED: CARV6.2512 PO (15:43)
[2021-02-08] MEDS ORDERED: ENOX40SY4 SQ (15:43)
[2021-02-08] MEDS ORDERED: SPIR25TA PO (15:43)
[2021-02-08] MEDS ORDERED: ACET325T26 PO (15:43)
[2021-02-08] MEDS ORDERED: NICO-486 TD (15:43)
[2021-02-08] MEDS ORDERED: TRAM50TA2 PO (15:43)
[2021-02-08] MEDS ORDERED: FURO-93 PO (15:44)
[2021-02-08] MEDS ORDERED: MAGN400T50 PO (15:52)
[2021-02-08] MEDS ORDERED: POTA20TA6 PO (15:52)
[2021-02-08] MEDS ORDERED: VANC1VIA36 PO (15:57)
[2021-02-08] MEDS: ENOXAPARIN 40 MG/0.4 ML SQ SCH (16:50)
== END 2021-02-08 17:29 | DRG 602 ==
LOC: ED 14:36 → EDIP 14:45 → 4EST 21:48
PROVIDERS: ADMIT Family Medicine; ATTEND Internal Medicine
DX: L03.116 Cellulitis of left lower limb (principal); I50.23 Acute on chronic systolic (congestive) heart failure; E43 Unspecified severe protein-calorie malnutrition; I42.0 Dilated cardiomyopathy; A04.72 Enterocolitis due to Clostridium difficile, not specified as recurrent; E87.6 Hypokalemia; I44.7 Left bundle-branch block, unspecified; D69.6 Thrombocytopenia, unspecified; I11.0 Hypertensive heart disease with heart failure; F17.210 Nicotine dependence, cigarettes, uncomplicated; F12.90 Cannabis use, unspecified, uncomplicated; I48.91 Unspecified atrial fibrillation; K80.20 Calculus of gallbladder without cholecystitis without obstruction; E83.42 Hypomagnesemia; I08.1 Rheumatic disorders of both mitral and tricuspid valves; I27.20 Pulmonary hypertension, unspecified; K70.30 Alcoholic cirrhosis of liver without ascites; B19.20 Unspecified viral hepatitis C without hepatic coma; D53.9 Nutritional anemia, unspecified; J44.9 Chronic obstructive pulmonary disease, unspecified; Z88.6 Allergy status to analgesic agent; Z68.37 Body mass index [BMI] 37.0-37.9, adult; Z82.49 Family history of ischemic heart disease and other diseases of the circulatory system; Z91.14 Patient's other noncompliance with medication regimen; Z86.73 Personal history of transient ischemic attack (TIA), and cerebral infarction without residual deficits; Z80.42 Family history of malignant neoplasm of prostate; Z79.899 Other long term (current) drug therapy
CPT/HCPCS: 36415; 71045; 76700; 80048; 80053; 80307; 81001; 81003; 83605; 83690; 83735; 83880; 84100; 84132; 84145; 84484; 85025; 85610; 87040; 87324; 93005; 96365; 96366; 96368; 96375; C8929; G0378; J1650; J1940; J2543; J3370; J3480; Q9957; Q9967; J3475; J7040